=== PATIENT | male | born 1955 | race Caucasian/White ===

== ENCOUNTER → 2017-09-09 | Outpatient (CLI) | payer MEDICARE ==
[~2017-09-09] MED LIST: BECL8.7A7 INH; IPRA12.9 INH; LEVO500T47 PO; NICO-487 TD; PRED10TA14 PO
== END | disposition home or self-care (01) ==
LOC: CFH 15:21
PROVIDERS: ATTEND Internal Medicine
DX: J43.9 Emphysema, unspecified (principal)
CPT/HCPCS: 71250